=== PATIENT | female | born 1965 | race Caucasian/White ===

== ENCOUNTER → 2017-05-26 | Outpatient (CLI) | payer BC ==
[2014-10-21 21:00] VITALS: BP 128/76
[~2017-05-26] MED LIST: DIPH25CA58 PO; DOXY100T PO; HYDR-2758 PO; HYDR-971 PO; LORA-434 PO; PRED20TA PO; PRED50TA PO
--- NOTE | 2017-05-26 17:08 | RAD ---
EXAM: Lumbar spine minimum 4 views. HISTORY: Low back pain. COMPARISON: None. FINDINGS: Alignment is maintained. Vertebral body heights are maintained, and no fractures are identified. Degenerative disc disease is mild at L1-2 and from L3 through L5. It is also mild in the lower thoracic spine. Facet osteoarthritis appears moderate at L5-S1. IMPRESSION: 1. Mild degenerative disc disease as above.
== END | disposition home or self-care (01) ==
LOC: RAD 15:58
PROVIDERS: ATTEND Physician Assistant
DX: M51.36 Other intervertebral disc degeneration, lumbar region (principal); M47.897 Other spondylosis, lumbosacral region
CPT/HCPCS: 72110

== ENCOUNTER → 2017-07-07 | Outpatient (CLI) | payer BC ==
[2014-10-21 21:00] VITALS: BP 128/76
--- NOTE | 2017-07-07 09:30 | RAD ---
INDICATION: cough x's 2 weeks COMPARISON: 10/21/2014 FINDINGS: 2 views of chest obtained. No focal airspace consolidation. Mediastinal contour is unremarkable. No gross osseous destructive lesion. IMPRESSION: No focal airspace consolidation or edema.
== END | disposition home or self-care (01) ==
LOC: PMG 08:13
PROVIDERS: ATTEND Physician Assistant Medical
DX: R09.89 Other specified symptoms and signs involving the circulatory and respiratory systems (principal); F17.200 Nicotine dependence, unspecified, uncomplicated
CPT/HCPCS: 71046